=== PATIENT | male | born 1970 | race Caucasian/White ===

== ENCOUNTER 2019-06-27 08:52 | Emergency (ER) | payer OTHER, SELFPAY ==
[2019-06-27 09:07] VITALS: BP 140/88; PULSE 72; RESP 13; TEMP 36.6; O2SAT 97
--- NOTE | 2019-06-27 09:31 | ED_ITS ---
HPI - Wound/Laceration General Chief Complaint: Wound/Laceration Stated Complaint: left hand index cut Time Seen by Provider: 06/27/19 09:08 Source: patient Mode of arrival: ambulatory Limitations: no limitations History of Present Illness HPI narrative: Patient is a 48-year-old male who presents with left index finger laceration. He was at work cutting it on a metal. Not sure if his tetanus is up to date. He has no numbness tingling or decreased range of motion. Onset (ago): minute(s) Review of Systems Review of Systems GENERAL: Denies chills,fever HEENT: Denies throat pain RESPIRATORY: Denies dyspnea, cough, wheezing CARDIOVASCULAR: Denies chest pain, palpitations GASTROINTESTINAL: Denies nausea, vomiting MUSCULOSKELETAL: Denies extremity pain, injury SKIN: See HPI NEUROLOGIC: Denies weakness, dizziness, headache, numbness 8 point review of systems is negative except for those stated above and HPI [facility] Medical History Patient denies significant medical history (Acute) Exam Initial Vital Signs Initial Vital Signs: Vital Signs Temperature 97.8 F 06/27/19 09:07 Pulse Rate 72 06/27/19 09:07 Respiratory Rate 13 06/27/19 09:07 Blood Pressure 140/88 06/27/19 09:07 Pulse Oximetry 97 06/27/19 09:07 GENERAL: Well-appearing, well-nourished and in no acute distress. CARDIOVASCULAR: peripheral pulses in tact, cap refill <2 sec RESPIRATORY: No respiratory distress, speaks in full sentences without difficulty EXTREMITIES: Normal range of motion, no clubbing or edema. Neurovascularly intact NEUROLOGICAL: Cranial nerves II through XII grossly intact. Normal gait and speech. SKIN: Dorsal side left index finger near MCP 2 cm laceration no tendon identified full range of motion Procedures Laceration Repair Laceration 1: Site: other (index finger) Side (If applicable): left Size (cm): 2 Description: linear Depth: simple, single layer Local Anesthetic: lidocaine 1% and with bicarb Pre-repair: wound explored and irrigated extensively Size (cm): 4-0 Number of sutures: 2 Technique: simple, interrupted Course Orders Ordered: Discontinued Medications Diphtheria/Tetanus/Acell Pertussis (Adacel) 0.5 ml IM .ONCE ONE Stop: 06/27/19 09:40 Last Admin: 06/27/19 09:52 Dose: 0.5 ml Lidocaine HCl (Xylocaine 2%) 5 ml SUBCUT NOW ONE Stop: 06/27/19 09:16 Vital Signs - 8 hr 06/27/19 09:07 Temperature 97.8 F Pulse Rate 72 Respiratory Rate 13 Blood Pressure 140/88 Pulse Oximetry 97 Discharge Plan Departure Patient Disposition: Home Clinical Impression: Laceration Discharge Date/Time: 06/27/19 10:16 Interventions: ED Discharge Assessment Last Done: 06/27/19 10:15 Instructions: DI for Laceration Repair Activity Restrictions/Additional Instructions: 1. Have your suture removed in 5-7 days, you may go to walk-in clinic, return to the ER or call your primary care physician. 2. No soaking in water including dishes, bathtubs, Lakes, swimming pools etc 3. Signs of infection include, but not limited to, increased redness, increased swelling, increased pain, fever and purulent drainage, if the symptoms should arise, you may need an antibiotic and you should have a reevaluation either by your primary care provider or by the emergency department.
[2019-06-27] MEDS: LIDO 1%/SOD BICARB 8.4% (10ML) 10 ML SYRINGE INJ (09:52)
[2019-06-27] MEDS: TET,DIPH,PERTUSS(ACELL),VAC/PF 0.5 ML SYRINGE IM (09:52)
== END 2019-06-27 10:16 | disposition home or self-care (01) ==
PROVIDERS: Emergency Provider Emergency Medicine
DX: S61.211A Laceration without foreign body of left index finger without damage to nail, initial encounter (principal); W26.8XXA Contact with other sharp object(s), not elsewhere classified, initial encounter; Y99.0 Civilian activity done for income or pay
CPT/HCPCS: 12001; 90471; 99282; 99283; 90715

== ENCOUNTER 2019-07-04 13:14 | Emergency (ER) | payer OTHER, SELFPAY ==
[2019-07-04 13:19] VITALS: BP 132/81; PULSE 69; RESP 14; TEMP 36.4; O2SAT 98
--- NOTE | 2019-07-05 00:48 | ED.RECABL ---
HPI - Recheck/Abnormal Lab/Rx <JAIME Valente - Last Filed: 07/05/19 01:11> General Chief Complaint: Recheck/Abnormal Lab/Rx Stated Complaint: REMOVE STITCHES WE PUT IN Time Seen by Provider: 07/04/19 13:43 Source: patient Mode of arrival: ambulatory Limitations: no limitations History of Present Illness HPI narrative: This is a 48-year-old male, nonsmoker, presents to ED for suture removal on his left 2nd proximal phalanx. Patient reports 2 suture have placed in 7 days ago and 1 suture not got loose removed on its own. Patient reports he had initially sustained a laceration from a metal at work. Patient denies signs and symptoms for infection at this time. Related Data Allergies Allergy/AdvReac Type Severity Reaction Status Date / Time No Known Drug Allergies Allergy Verified 07/04/19 13:19 Review of Systems <JAIME Valente - Last Filed: 07/05/19 01:11> Review of Systems ROS Unobtainable: All systems reviewed & are unremarkable except as noted in HPI and below PFSH <JAIME Valente - Last Filed: 07/05/19 01:11> Medical History Patient denies significant medical history (Acute) Social History Smoking Status: Unknown if ever smoked Social History Smoking Status: Unknown if ever smoked Exam <JAIME Valente - Last Filed: 07/05/19 01:11> Narrative Exam Narrative: General appearance: well developed, well nourished, in no acute distress. Head: normocephalic, atraumatic, no scalp lesions, non-tender. Eye: pupil equal, round. EOMI. Nose: nares patent. Oral: mucosa moist. Neck/Thyroid: neck supple, full range of motion, no visible masses. Skin: One suture remaining on L 2nd digit proximal digit. Suture edge not completely approximated where suture was removed. No suspicious rashes, lesions over visible areas. Warm and dry. Heart: no clubbing, no cyanosis, no edema. Lungs: Breathing even and unlabored. No stridor. No accessory muscles used. Chest: normal shape and expansion. Abdomen: non-obese, non-distended. Neurologic: alert and oriented. Cognitive exam, ACCOUNT RETENTION REPRESENTATIVE and PNS grossly intact on informal exam. Psych: good eye contact, normal affect. Initial Vital Signs Initial Vital Signs: Vital Signs Temperature 97.6 F 07/04/19 13:19 Pulse Rate 69 07/04/19 13:19 Respiratory Rate 14 07/04/19 13:19 Blood Pressure 132/81 07/04/19 13:19 Pulse Oximetry 98 07/04/19 13:19 <Ladan Gurrola DO - Last Filed: 07/05/19 19:26> Initial Vital Signs Initial Vital Signs: Vital Signs Temperature 97.6 F 07/04/19 13:19 Pulse Rate 69 07/04/19 13:19 Respiratory Rate 14 07/04/19 13:19 Blood Pressure 132/81 07/04/19 13:19 Pulse Oximetry 98 07/04/19 13:19 [facility] - Recheck/Abnormal Lab/Rx <JAIME Valente - Last Filed: 07/05/19 01:11> Differential Diagnosis Likely encounter for removal of sutures Medical Records Attestation: I reviewed the patient's medical records. [facility] Narrative Medical decision making narrative: This is 48-year-old gentleman who return to ED 7 days after he had a couple of sutures placed on left 2nd digit proximal phalanx. However, was worn a 1 suture was visualized today. Patient reports the the other suture knot became loosened and came off. Wound edges was approximated well on the side where 1 suture was remained but the opposite side of wound edges were not completely approximated. One suture was removed and the wound edges were reinforced with Steri-Strips and patient tolerated well. Patient informed that Steri-Strips will be removed on his own after about 5 days. Patient verbalized understanding and agrees with the treatment plan and return precautions were discussed with patient. Discharge Plan Departure Patient Disposition: Home Clinical Impression: Encounter for removal of sutures Discharge Date/Time: 07/04/19 14:13 Instructions: DI for Suture Removal Activity Restrictions/Additional Instructions: You have been diagnosed with [suture removal on your left pointer finger x1]. What to do: *Take your medications as directed. No new medication to go home with. Keep Steri-Strips for 5 days and he should be removed on its own, if it is not you can pill these off. Steri-Strips were applied to enforced the approximation of your wound. *Follow up with your primary care provider in 2-3 days, call for an appointment. Let them know you were seen in the ED and that we asked you to be seen in follow up. *Return to ED if you have any new, worsening, or concerning symptoms, such as [increasing swelling, redness, pus-like drainage, warmth, any acute concerns]. Referrals: Shashank Stevens MD [Primary Care Provider] - <Ladan Gurrola DO - Last Filed: 07/05/19 19:26> Cosign ED Attending Cosignature Attestation: I was immediately available in the department for consultation. This documentation has been reviewed and I agree with assessment and plan. Supervised by Ladan Gurrola DO
== END 2019-07-04 14:13 | disposition home or self-care (01) ==
PROVIDERS: Emergency Provider Nurse Practitioner Family; PCP Internal Medicine
DX: Z48.02 Encounter for removal of sutures (principal); Y99.0 Civilian activity done for income or pay
CPT/HCPCS: 99282; 99283

== ENCOUNTER → 2021-02-03 18:15 | Outpatient (ROUT) | payer BC, SELFPAY ==
[2021-02-03 19:20] LABS: Alanine Aminotransferase 28 IU/L (<50); Albumin 4.8 g/dL (3.5-5.0); Albumin Globulin Ratio 1.7 (1.0-2.8); Alkaline Phosphatase 73 U/L (38-126); Aspartate Aminotransferase 36 IU/L (17-59); Bilirubin Total 0.3 mg/dL (0.2-1.3); Bilirubin Unconjugated 0.3 mg/dL (0.0-1.1); Cholesterol 265 mg/dL (140-199); Globulin 2.8 g/dL (1.7-4.1); Glucose 93 mg/dL (70-100); HDL Cholesterol 82 mg/dL (40-60); HEMOLYSIS < 15 (0-50); LDL Cholesterol Calculated 171 mg/dL (<100); Total Protein 7.6 g/dL (6.3-8.2); Triglycerides 58 mg/dL (35-150)
[2021-02-03 19:50] LABS: Prostate Specific Antigen 0.587 ng/mL (0.10-4.00)
== END ==
PROVIDERS: PCP Internal Medicine; Visit Provider Internal Medicine
DX: E78.2 Mixed hyperlipidemia (principal); N40.1 Benign prostatic hyperplasia with lower urinary tract symptoms
CPT/HCPCS: 80061; 80076; 82947; 84153

== ENCOUNTER 2022-06-23 08:19 | Emergency (ER) | payer OTHER, SELFPAY ==
[2022-06-23 08:41] VITALS: BP 158/84; PULSE 77; RESP 18; TEMP 36.4; O2SAT 100; BMI 27.3
--- NOTE | 2022-06-23 09:32 | ED_ITS ---
HPI - Wound/Laceration General Chief Complaint: Wound/Laceration Stated Complaint: Lac to right pointer finger Time Seen by Provider: 06/23/22 08:27 Source: patient Mode of arrival: Ambulatory History of Present Illness HPI narrative: Otherwise healthy 51-year-old gentleman was working with the ladder earlier today and caught his right D IP joint index finger, palmar surface, between the edges of the ladder with minor laceration. The laceration reveals the tendon but there is no tendon injury. It is clean, bleeding is controlled he is neurovascularly intact he has no other complaints or concerns. He is right- handed Related Data Previous Rx's Medication Instructions Recorded cephalexin 500 mg capsule 500 mg PO TID 5 days #15 caps 06/23/22 Allergies Allergy/AdvReac Type Severity Reaction Status Date / Time No Known Drug Allergies Allergy Verified 06/23/22 08:43 Review of Systems Review of Systems Narrative: Pertinent positive and negative findings as per HPI Remainder of review of systems is otherwise unremarkable for Constitutional: Fevers, chills, weakness ENT: No sore throat, neck pain, ear pain CV: Chest pain, palpitations, Respiratory: Cough, wheeze, dyspnea GI: Nausea, vomiting, diarrhea, Patient History Medical History (Updated 06/23/22 @ 09:54 by Sada Bennett MD) Patient denies significant medical history Social History Smoking Status: Never smoker Smoking Status: Never smoker alcohol intake frequency: other Substance Use Type: does not use Exam Initial Vital Signs Initial Vital Signs: Vital Signs Temperature 97.5 F L 06/23/22 08:41 Pulse Rate 77 06/23/22 08:41 Respiratory Rate 18 06/23/22 08:41 Blood Pressure 158/84 H 06/23/22 08:41 Pulse Oximetry 100 06/23/22 08:41 Oxygen Delivery Method 06/23/22 08:41 General: Alert appropriate in no acute distress Respiratory: Able to speak in full sentences, no obvious respiratory distress Skin: No obvious rashes, warm and dry Neurologic: Grossly intact no obvious asymmetries or abnormalities Psych: appropriate insight and affect, cooperative Extremity: Right index finger has a small flap-like laceration the palmar surface over the D IP joint. Part of the flexor tendon sheath can be seen but there does not appear to be any disruption and he is neurovascularly intact with very good strength in the finger. I do not suspect tendon involvement at this point Procedures Laceration Repair Right index finger: Time of procedure: 09:51 Site: hand Side (If applicable): right Size (cm): 2 Description: flap Depth: simple, single layer Local Anesthetic: lidocaine 1% and with bicarb Amount of anesthesia used (mL): 3 Pre-repair: wound explored, irrigated extensively and deep structures intact Skin layer closed with: nylon Skin layer suture size: 4-0 Number of sutures: 1 Technique: horizontal mattress Course Orders Ordered: Discontinued Medications Lidocaine/Sodium Bicarbonate (Lido 1%/Sod Bicarb 8.4% (10ml) 10 Ml Syringe) 10 ml INJ NOW ONE Stop: 06/23/22 09:06 Vital Signs Vital signs: Vital Signs - 8 hr 06/23/22 08:41 Temperature 97.5 F L Pulse Rate 77 Respiratory Rate 18 Blood Pressure 158/84 H Pulse Oximetry 100 Oxygen Delivery Method Room Air MDM - Wound/Laceration MDM Narrative Medical decision making narrative: 51-year-old right-handed gentleman a small laceration to the distal right index finger. Does not involved tendon. As he is otherwise healthy I do not think we need to begin antibiotics at this time however have cautioned him regarding signs and symptoms of infection and given him a prescription for Keflex to begin should he have any concerns. Recommended 7 days to have sutures removed. Reviewed pain control and keeping the wound clean. Questions were answered. L&I forms were filled out Discharge Plan Departure Patient Disposition: Home Clinical Impression: Laceration Instructions: DI for Minor Laceration Activity Restrictions/Additional Instructions: Thank you for coming in today We put in sutures to help the wound heal faster. There does not appear to be any sign of infection at this point and I think the risk for infection is low however, finger infections can get rather complicated. If you are noticing increasing pain, swelling, redness or any type of discharge please begin the antibiotics. If symptoms continue to worsen after 24 hours you need to make sure that you are seen by a physician You can return to the emergency department, urgent care or contact your primary care doctor's office for the stitches to come out on or about June 30 If you find that you are getting worse or develop any new symptoms, please feel free to return to the emergency department for further evaluation. Prescriptions: New cephalexin 500 mg capsule 500 mg PO TID 5 Days Qty: 15 0RF Referrals: Shashank Stevens MD [Primary Care Provider] -
[2022-06-23] MEDS: BACITRACIN OINT 0.9 GM PCKT 1 APPLIC TOP (10:02)
[2022-06-23] MEDS: LIDO 1%/SOD BICARB 8.4% (10ML) 10 ML SYRINGE INJ (10:02)
== END 2022-06-23 10:15 | disposition home or self-care (01) ==
PROVIDERS: Emergency Provider Emergency Medicine; PCP Internal Medicine
DX: S61.210A Laceration without foreign body of right index finger without damage to nail, initial encounter (principal); W23.0XXA Caught, crushed, jammed, or pinched between moving objects, initial encounter; Y99.0 Civilian activity done for income or pay
CPT/HCPCS: 12001; 99283

== ENCOUNTER → 2022-07-20 15:26 | Outpatient (CLI) | payer OTHER, SELFPAY ==
[2022-07-20 17:46] LABS: Hematocrit 38.5 % (41-53); Hemoglobin 13.3 g/dL (13.5-17.5); Mean Corpuscular HGB Conc 34.5 % (30-36); Mean Corpuscular Hemoglobin 30.6 PG (26-34); Mean Corpuscular Volume 88.7 fL (80-100); Platelet Count 283 X10^3/uL (150-400); Red Blood Cell Count 4.34 X10^6/uL (4.5-5.9); Red Cell Distribution Width 13.1 % (11.6-14.8)
[2022-07-20 18:21] LABS: Alanine Aminotransferase 10 IU/L (<50); Albumin 4.5 g/dL (3.5-5.0); Albumin Globulin Ratio 1.6 (1.0-2.8); Alkaline Phosphatase 59 U/L (38-126); Aspartate Aminotransferase 28 IU/L (17-59); Bilirubin Total 0.3 mg/dL (0.2-1.3); Blood Urea Nitrogen 15 mg/dL (9-20); Calcium 9.6 mg/dL (8.4-10.2); Carbon Dioxide 30 mmol/L (22-32); Chloride 104 mmol/L (98-107); Cholesterol 196 mg/dL (140-199); Estimated Glomerular Filt Rate > 60 mL/min (>60); Globulin 2.8 g/dL (1.7-4.1); Glucose 82 mg/dL (70-100); HDL Cholesterol 56 mg/dL (40-60); HEMOLYSIS < 15 (0-50); LDL Cholesterol Calculated 98 mg/dL (<100); Potassium 4.8 mmol/L (3.4-5.1); Sodium 143 mmol/L (137-145); Total Protein 7.3 g/dL (6.3-8.2); Triglycerides 211 mg/dL (35-150)
[2022-07-20 18:49] LABS: Prostate Specific Antigen 0.696 ng/mL (0.10-4.00)
[2022-07-20 18:50] LABS: TSH w/ Reflex to FT4 3.21 uIU/mL (0.47-4.68)
== END ==
PROVIDERS: PCP Internal Medicine; Referring Provider Internal Medicine; Visit Provider Internal Medicine
DX: Z00.00 Encounter for general adult medical examination without abnormal findings (principal); R53.83 Other fatigue; Z12.5 Encounter for screening for malignant neoplasm of prostate
CPT/HCPCS: 36415; 80053; 80061; 84153; 84443; 85027

== ENCOUNTER → 2022-08-05 15:40 | Outpatient (CLI) | payer OTHER, SELFPAY ==
--- NOTE | 2022-08-05 | DI.CT.S_ITS ---
PROCEDURE: CT CHEST WO CON INDICATIONS: HISTORY OF SMOKING, screening for malignant neoplasm of lung TECHNIQUE: Noncontrast 2.0-2.5 mm thick sections acquired from the pulmonary apices to the posterior costophrenic angles. 7 mm thick axial MIP, and 5 mm coronal and sagittal reformats were then acquired. A low radiation dose technique was utilized. COMPARISON: None. FINDINGS: Image quality: Diagnostic, given the low radiation dose technique. Lungs and pleura: There is mild centrilobular emphysema with an apical predominance. Mediastinum: Heart size is normal. No pericardial effusion. No mediastinal adenopathy by size criteria. Thoracic aorta and central pulmonary arteries are normal in size. Esophagus is normal in caliber. No hiatal hernia. Bones and chest wall: No suspicious bony lesions. No vertebral body compression fractures. No axillary or supraclavicular adenopathy by size criteria. Thyroid gland is unremarkable. Abdomen: A 3 mm nonobstructing calculus is present at the upper pole of the left kidney. Visualized upper abdomen solid organs and bowel loops appear otherwise normal in the absence of contrast. IMPRESSION: No suspicious pulmonary nodules or mass lesions. No acute airspace opacities. Nonobstructive left nephrolithiasis. LUNG-RADS 1; annual CT follow-up recommended. Dictated by: Krista Polo M.D. on 08/05/2022 at 17:06 Approved by: Krista Polo M.D. on 08/05/2022 at 17:08
== END ==
PROVIDERS: PCP Internal Medicine; Referring Provider Internal Medicine; Visit Provider Internal Medicine
DX: Z12.2 Encounter for screening for malignant neoplasm of respiratory organs (principal); N20.0 Calculus of kidney; J43.2 Centrilobular emphysema; Z87.891 Personal history of nicotine dependence
CPT/HCPCS: 71250

== ENCOUNTER → 2024-05-09 14:17 | Outpatient (CLI) | payer BC, SELFPAY ==
[2024-05-09 15:23] LABS: Hematocrit 40.4 % (41-53); Hemoglobin 13.7 g/dL (13.5-17.5); Mean Corpuscular Hemoglobin 30.3 PG (26-34); Mean Corpuscular Volume 89.1 fL (80-100); Platelet Count 284 X10^3/uL (150-400); Red Blood Cell Count 4.53 X10^6/uL (4.5-5.9); Red Cell Distribution Width 13.7 % (11.6-14.8); White Blood Cell Count 6.6 X10^3/uL (4.5-11.0)
[2024-05-09 15:44] LABS: Blood Urea Nitrogen 15 mg/dL (9-20); Calcium 9.5 mg/dL (8.4-10.2); Carbon Dioxide 30 mmol/L (22-32); Chloride 105 mmol/L (98-107); Cholesterol 219 mg/dL (140-199); Estimated Glomerular Filt Rate > 60 mL/min (>60); Glucose 92 mg/dL (70-100); HDL Cholesterol 69 mg/dL (40-60); HEMOLYSIS < 15 (0-50); LDL Cholesterol Calculated 130 mg/dL (<100); Potassium 4.6 mmol/L (3.4-5.1); Sodium 140 mmol/L (137-145); Triglycerides 98 mg/dL (35-150)
[2024-05-09 16:12] LABS: Prostate Specific Antigen Scrn 0.663 ng/mL (0.1-4.0)
== END ==
PROVIDERS: PCP Internal Medicine; Referring Provider Internal Medicine; Visit Provider Internal Medicine
DX: Z12.5 Encounter for screening for malignant neoplasm of prostate (principal); D64.9 Anemia, unspecified; E78.2 Mixed hyperlipidemia
CPT/HCPCS: 80048; 80061; 85027; G0103

== ENCOUNTER → 2024-06-17 10:42 | Outpatient (CLI) | payer BC, SELFPAY ==
--- NOTE | 2024-06-17 10:44 | DI.CT.S_ITS ---
PROCEDURE: CT LUNG LOW DOSE SCREENING INDICATIONS: history of tobacco TECHNIQUE: Noncontrast 2.0-2.5 mm thick sections acquired from the pulmonary apices to the posterior costophrenic angles. 7 mm thick axial MIP, and 5 mm coronal and sagittal reformats were then acquired. For radiation dose reduction, the following was used: automated exposure control, adjustment of mA and/or kV according to patient size. COMPARISON: None. FINDINGS: Image quality: Diagnostic. Lower Neck: No enlarged lymph nodes. Thyroid: No thyroid nodules which require sonographic follow up, per consensus guidelines. Axillae: No enlarged lymph nodes. Chest Wall: Unremarkable. Bones: Visualized osseous structures appear intact without acute fracture or focal destructive lesion. No acute compression fractures of the imaged spine. Lungs and Pleura: No pneumothorax or pleural effusions. No consolidation or suspicious nodules. Minimal upper lobe predominant centrilobular pulmonary emphysematous changes. Heart: Heart size is normal. No pericardial effusion. Thoracic Vessels: The aorta and pulmonary arteries demonstrate normal size. Mediastinum and Denita: No enlarged lymph nodes. Esophagus: No wall thickening. No hiatal hernia. Upper Abdomen: Visualized upper abdomen solid organs and bowel loops appear normal. IMPRESSION: No suspicious pulmonary nodules. LUNG-RADS 1; continued annual screening, if eligible. Clinically Significant Non-pulmonary Findings: None. Dictated by: Dhiraj Wallace M.D. on 06/17/2024 at 11:36 Approved by: Dhiraj Wallace M.D. on 06/17/2024 at 11:43
== END ==
LOC: CT 10:43
PROVIDERS: PCP Internal Medicine; Referring Provider Internal Medicine; Visit Provider Internal Medicine
DX: Z12.2 Encounter for screening for malignant neoplasm of respiratory organs (principal); Z87.891 Personal history of nicotine dependence; D64.9 Anemia, unspecified; E78.2 Mixed hyperlipidemia
CPT/HCPCS: 71271

== ENCOUNTER → 2025-05-16 08:47 | Outpatient (CLI) | payer BC, SELFPAY ==
[2025-05-16 10:07] LABS: Hematocrit 41.0 % (41-53); Hemoglobin 14.1 g/dL (13.5-17.5); Mean Corpuscular HGB Conc 34.4 % (30-36); Mean Corpuscular Hemoglobin 30.9 PG (26-34); Mean Corpuscular Volume 89.6 fL (80-100); Platelet Count 276 X10^3/uL (150-400)
[2025-05-16 10:30] LABS: Blood Urea Nitrogen 17 mg/dL (9-20); Calcium 9.5 mg/dL (8.4-10.2); Carbon Dioxide 26 mmol/L (22-32); Chloride 105 mmol/L (98-107); Cholesterol 178 mg/dL (140-199); Estimated Glomerular Filt Rate > 60 mL/min (>60); Glucose 103 mg/dL (70-99); HDL Cholesterol 59 mg/dL (40-60); HEMOLYSIS 15 (0-50); Potassium 5.0 mmol/L (3.4-5.1); Sodium 139 mmol/L (137-145); Triglycerides 57 mg/dL (35-150)
[2025-05-16 10:32] LABS: HEMOLYSIS < 15 (0-50); Iron 114 ug/dL (49-181)
[2025-05-16 10:43] LABS: Percent Iron Saturation 35 % (20-50); Total Iron Binding Capacity 330 ug/dL (261-462); Transferrin 279 mg/dL (206-381)
[2025-05-16 11:05] LABS: Ferritin 54 ng/mL (18-464)
== END ==
PROVIDERS: PCP Internal Medicine; Referring Provider Internal Medicine; Visit Provider Internal Medicine
DX: Z00.00 Encounter for general adult medical examination without abnormal findings (principal); E78.2 Mixed hyperlipidemia; Z12.5 Encounter for screening for malignant neoplasm of prostate
CPT/HCPCS: 36415; 80048; 80061; 82728; 83540; 83550; 85027; G0103